=== PATIENT | male | born 1955 | race Caucasian/White ===

== ENCOUNTER 2018-07-05 17:53 | Inpatient (IN) ==
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
[2018-07-05 18:40] LABS: Baso # (Auto) 0.1 th/mm3 (0.0-0.2); Baso % (Auto) 0.9 % (0.0-2.0); Eos # (Auto) 0.1 th/mm3 (0.0-0.4); Eos % (Auto) 2.2 % (0.0-4.0); Hematocrit 42.6 % (39.0-51.0); Hemoglobin 14.6 gm/dL (13.0-17.0); Lymph # (Auto) 1.6 th/mm3 (1.0-4.8); Lymph % (Auto) 22.8 % (9.0-44.0); Mean Corpuscular HGB Conc 34.2 % (32.0-36.0); Mean Corpuscular Hemoglobin 28.9 pg (27.0-34.0); Mean Corpuscular Volume 84.4 fL (80.0-100.0); Mean Platelet Volume 6.7 fL (7.0-11.0); Mono # (Auto) 0.4 th/mm3 (0.0-0.9); Mono % (Auto) 6.2 % (0.0-8.0); Neut # (Auto) 4.6 th/mm3 (1.8-7.7); Neut % (Auto) 67.9 % (16.0-70.0); Platelet Count 197 th/mm3 (150-450); Red Blood Count 5.05 mil/mm3 (4.50-5.90); White Blood Count 6.8 th/mm3 (4.0-11.0)
[2018-07-05 18:49] LABS: Activated Partial Thrombo Time 23.6 sec (23.4-31.7); Prothrombin Time 10.4 sec (9.8-11.6)
--- NOTE | 2018-07-05 18:52 | XR ---
EXAM DATE: 07/05/2018 6:36 PM EST AGE/SEX: 62 years / Male INDICATIONS: Patient twisted right leg. CLINICAL DATA: This is the patient's initial encounter. Patient reports that signs and symptoms have been present for 1 day and indicates a pain score of 10/10. MEDICAL/SURGICAL HISTORY: None. . rt knee prosthesis COMPARISON: No prior exams available for comparison. FINDINGS: Comminuted complex oblique fracture of the distal tibia and fibula with anterior and lateral angulati on. There is approximately quarter shaft length posterior displacement of the major distal tibial fra gment and shaft length anterior displacement of the distal fibular fragment. Diffuse soft tissue maikel a. Visualized portions of the talar dome appear intact. There is a right knee arthroplasty in place. CONCLUSION: 1. Comminuted complex oblique fracture of the distal tibia and fibula, as above. Electronically signed by: Sin Wong MD Board Certified Radiologist 07/05/2018 6:51 PM EST
--- NOTE | 2018-07-05 19:05 | XR ---
EXAM DATE: 07/05/2018 7:01 PM EST AGE/SEX: 62 years / Male INDICATIONS: Patient has fracture to right distal tibia, surgery. CLINICAL DATA: This is the patient's initial encounter. Patient reports that signs and symptoms have been present for 1 day and indicates a pain score of 7/10. MEDICAL/SURGICAL HISTORY: None. . total rt knee COMPARISON: No prior exams available for comparison. FINDINGS: A single AP view of the chest demonstrates the lungs to be symmetrically aerated without evidence of mass, infiltrate or effusion. The cardiac silhouette is enlarged. Osseous structures are intact. CONCLUSION: 1. Compensated cardiomegaly. Electronically signed by: Sin Wong MD Board Certified Radiologist 07/05/2018 7:03 PM EST
[2018-07-05 19:11] LABS: Alanine Aminotransferase 40 U/L (12-78)
[2018-07-05 19:13] LABS: Alkaline Phosphatase 80 U/L (45-117); Total Protein 7.4 g/dL (6.4-8.2)
[2018-07-05 19:23] LABS: Albumin 3.6 g/dL (3.4-5.0); Anion Gap 9 meq/L (5-15); Aspartate Aminotransferase 31 U/L (15-37); Blood Urea Nitrogen 29 mg/dL (7-18); Calcium 8.6 mg/dL (8.5-10.1); Carbon Dioxide 20.4 meq/L (21.0-32.0); Chloride 108 meq/L (98-107); Glomerular Filtration Rate 54 mL/min (>89); Glucose,Random 106 mg/dL (74-106); Potassium 4.1 meq/L (3.5-5.1); Sodium 137 meq/L (136-145)
--- NOTE | 2018-07-05 19:50 | CT ---
EXAM DATE: 07/05/2018 7:41 PM EST AGE/SEX: 62 years / Male INDICATIONS: Fracture. CLINICAL DATA: This is the patient's initial encounter. Patient reports that signs and symptoms have been present for 1 day and indicates a pain score of 10/10. MEDICAL/SURGICAL HISTORY: Hypertension. . Knee replacement. RADIATION DOSE: 8.15 CTDI (mGy) COMPARISON: No prior exams available for comparison. TECHNIQUE: Multiple contiguous axial images were acquired using a multirow detector CT scanner witho ut contrast. Multiplanar reconstruction was performed in the sagittal and coronal planes. Using aut omated exposure control and adjustment of the mA and/or kV according to patient size, radiation dose was kept as low as reasonably achievable to obtain optimal diagnostic quality images. DICOM format i mage data is available electronically for review and comparison. FINDINGS: Bones: Comminuted fracture of the distal tibia with 3 major fragments with prominent lateral and pos terior angulation. Subtle nondisplaced fracture extending inferiorly along the anterior tibia to the anterior periarticular surface. Associated fracture of the distal fibula with nearly half shaft lengt h anterior displacement of the distal fragment. Similar lateral and posterior angulation. Talar dome appears intact. Calcaneal spurring. Remaining osseous structures appear intact. Joints: Ankle mortise appears intact with uniform joint space. Soft Tissues: Diffuse soft tissue edema in the distal calf. Prominent tibial artery calcifications. Other: No foreign bodies seen. CONCLUSION: 1. Distal tibial and fibular fractures, as above. Electronically signed by: Sin Wong MD Board Certified Radiologist 07/05/2018 7:49 PM EST
[2018-07-05] MEDS ORDERED: HYDROmorphone PF Inj 2 MG/ML Vial IV.PUSH ONE (20:46)
[2018-07-05] MEDS ORDERED: Acetaminophen 325 MG Tablet PO PRN (21:18)
[2018-07-05] MEDS ORDERED: Naloxone Inj 0.4 MG/ML Vial IV.PUSH PRN (21:18)
[2018-07-06] MEDS: HYDROmorphone PF Inj 1 MG/ML Ampul IV.PUSH PRN ×7 (00:52→23:15)
[2018-07-06 04:38] LABS: Baso # (Auto) 0.1 th/mm3 (0.0-0.2); Baso % (Auto) 0.8 % (0.0-2.0); Eos # (Auto) 0.2 th/mm3 (0.0-0.4); Hematocrit 43.5 % (39.0-51.0); Hemoglobin 14.6 gm/dL (13.0-17.0); Lymph # (Auto) 1.6 th/mm3 (1.0-4.8); Lymph % (Auto) 21.1 % (9.0-44.0); Mean Corpuscular HGB Conc 33.5 % (32.0-36.0); Mean Corpuscular Hemoglobin 29.1 pg (27.0-34.0); Mean Corpuscular Volume 86.9 fL (80.0-100.0); Mean Platelet Volume 6.7 fL (7.0-11.0); Mono # (Auto) 0.6 th/mm3 (0.0-0.9); Mono % (Auto) 7.2 % (0.0-8.0); Neut # (Auto) 5.4 th/mm3 (1.8-7.7); Neut % (Auto) 68.9 % (16.0-70.0); Platelet Count 234 th/mm3 (150-450); Red Blood Count 5.01 mil/mm3 (4.50-5.90); Red Cell Distribution Width 14.3 % (11.6-17.2); White Blood Count 7.8 th/mm3 (4.0-11.0)
[2018-07-06 05:07] LABS: Calcium 8.6 mg/dL (8.5-10.1); Carbon Dioxide 26.8 meq/L (21.0-32.0); Potassium 4.6 meq/L (3.5-5.1)
[2018-07-06] MEDS: Docusate Sodium 100 MG Capsule PO SCH ×3 (09:34→20:15)
[2018-07-06] MEDS: Lisinopril 20 MG Tablet PO SCH (11:25)
[2018-07-06] MEDS ORDERED: Aluminum/Magnesium/Simethacone Susp 30 ML UDC PO PRN (11:37)
[2018-07-06] MEDS ORDERED: Senna/Docusate Sodium 8.6/50 MG Tablet PO PRN (11:37)
[2018-07-06] MEDS ORDERED: LORazepam 1 MG Tablet PO PRN (11:38)
[2018-07-06] MEDS ORDERED: Haloperidol Inj 5 MG/ML Ampul IV.PUSH PRN (11:38)
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
--- NOTE | 2018-07-06 13:01 | OTSOAPIP ---
TIME SESSION COMPLETED: 1200 TREATMENT TIME: 0 MINS. CHART REVIEWED. PATIENT ADMITTED WITH COMMINUTED COMPLEX OBLIQUE FRACTURE DISTAL TIBIA AND FIBULA. AWAITING ORTHO CONSULT. OCCUPATIONAL THERAPY WILL HOLD UNTIL ORTHO CONSULT. Therapist: Rayna Graff Signature on file
--- NOTE | 2018-07-06 13:42 | ECG ---
Date Performed: 07/06/2018 Time Performed: 09:12:04 PTAGE: 62 years EKG: Sinus rhythm NORMAL ECG NO PREVIOUS TRACING DOCTOR: Edu Mireles Interpretating Date/Time 07/06/2018 13:31:00
[2018-07-06] MEDS ORDERED: Metoprolol Tartrate 25 MG Tablet PO ONE (14:42)
[2018-07-06] MEDS ORDERED: Chlorhexidine Gluconate 2% 1 Pack (2 Cloths) TOPICAL ONE (14:42)
[2018-07-06] MEDS ORDERED: Sodium Chlor 0.9% Inj 500 ML IV.SIG ONE (15:00)
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
[2018-07-06] MEDS ORDERED: HYDROmorphone PF Inj 1 MG/ML Ampul ONE (16:50)
[2018-07-06] MEDS ORDERED: Ketamine Inj 50 MG/5 ML Syringe IV.PUSH ONE (16:56)
[2018-07-06] MEDS ORDERED: ceFAZolin Inj 1 GM Vial (Addvantage) IV.SIG ONE (17:16)
[2018-07-06] MEDS ORDERED: fentaNYL Citrate Inj 100 MCG/2 ML Ampul ONE (17:16)
[2018-07-06] MEDS ORDERED: Sugammadex Inj 200 MG/2 ML Vial IV.PUSH ONE (17:34)
[2018-07-06] MEDS ORDERED: ceFAZolin 2 GM Premix Inj 2 GM/50 ML PIGGYBACK IV.SIG ONE (17:54)
[2018-07-06] MEDS ORDERED: Post-op Orders (for Pharmacy) OTHER STA (18:13)
--- NOTE | 2018-07-06 18:17 | P.OP ---
- Preoperative Diagnosis (1) Closed fracture of distal end of right fibula and tibia Date of procedure: 07/06/18 Procedure: Open reduction internal fixation right distal tibia fracture Anesthesia: GETA Surgeon: Duglas Maciel MD High School Teacher: GEORGE Cummings PA-C The surgical procedure was assisted by my physician assignment desk assistant. My P.A. presence was necessary throughout this case for the manipulation and positioning of the surgical extremity. My P.A. was assisting me throughout the duration of this procedure. The skill set of a physician assignment desk assistant was medically necessary to complete this procedure. During the surgical case the surgical services coordinator was working at the back table and the physician assignment desk assistant was directly assisting me. Operation and Findings: Implants used: [facility] Details of procedure: Edenilson was seen and evaluated preoperatively. He was found to have displaced right distal tibia and fibula fractures. Informed consent was obtained for open reduction and internal fixation of distal tibia fracture versus possible external fixation. Soft tissue was evaluated preoperatively and found to be suitable for open reduction internal fixation surgery. Patient was brought to the operating placed on operating room table. Patient was given IV sedation and general anesthesia. Timeout procedure was performed, and IV antibiotics were given prior to procedure. The operative leg was now prepped with alcohol followed by Hibiclens and draped usual sterile fashion. A 3 inch incision was now made over the medial aspect of the ankle. Saphenous vein was protected. A full thickness flap was now elevated. The distal medial tibia was now exposed. Attention was now turned towards reduction. The metaphyseal fragments were reduced first. Traction was applied and fracture fragments were manipulated. There were multiple metaphyseal fragments. These were manipulated in excellent reduction was achieved. Fracture tenaculums were used to reduce fractures. Multiple K wires were used to hold provisional fixation. Fluoroscopy confirmed excellent alignment of fractures. An [facility] medial distal tibial plate was selected. Plate was placed percutaneously along the medial aspect of the distal tibia. Plate was provisionally held to bone with K wires. 2.7 cortical screws and 3.5 cortical screws were used to compress plate to bone. Multiple screws were placed into the shaft. Multiple 2.7 locking screws were placed into the distal segment. All screws were predrilled and premeasured for appropriate lengths. Final fluoroscopy revealed well aligned fracture with well-placed hardware. The wound was now thoroughly irrigated. Subcutaneous tissues closed with 3-0 Vicryl and skin was closed with 3-0 nylon. Sterile dressings were applied with Xeroform 4 x 4's soft roll and a well-padded splint.. Needle and sponge counts were correct. Patient was transferred to recovery room in stable condition.
--- NOTE | 2018-07-06 18:37 | XR ---
EXAM DATE: 07/06/2018 6:22 PM EST AGE/SEX: 62 years / Male INDICATIONS: Right tibial plate. CLINICAL DATA: This is the patient's initial encounter. Patient reports that signs and symptoms have been present for 1 day and indicates a pain score of Nonresponsive. MEDICAL/SURGICAL HISTORY: Non-responsive. Non-responsive. COMPARISON: No prior exams available for comparison. FINDINGS: Previous plate and screw fixation of the distal tibia with near-anatomic alignment. No dislocation. CONCLUSION: Plate and screw fixation of comminuted tibial fracture. Electronically signed by: Arturo Gardiner MD Board Certified Radiologist 07/06/2018 6:35 PM EST
[2018-07-06] MEDS ORDERED: *HYDROmorphone PF Inj 1 MG/ML Ampul PERIprocedural Use ONLY ONE ×3 (18:47→19:21)
[2018-07-06] MEDS ORDERED: *Ondansetron Inj 4 MG/2 ML Vial PERIprocedural Use ONLY ONE (18:59)
[2018-07-06] MEDS ORDERED: ceFAZolin Inj 2,000 MG in Sodium Chlor 0.9% Inj 80 ML IV.SIG SCH (19:00)
[2018-07-06] MEDS ORDERED: Ketorolac Inj 30 MG/ML (IVP) Vial ONE (19:02)
[2018-07-06] MEDS: Ketorolac Inj 30 MG/ML (IVP) Vial IV.PUSH SCH (19:09)
[2018-07-06] MEDS ORDERED: Temazepam 15 MG Capsule PO PRN (21:00)
[2018-07-06] MEDS: Vancomycin Inj 1,000 MG in Sodium Chlor 0.9% Inj 250 ML IV.SIG SCH (21:05)
[2018-07-06] MEDS: Famotidine 20 MG Tablet PO SCH (21:14)
[2018-07-06] MEDS ORDERED: Vancomycin Inj 1 GM/200 ML PIGGYBACK IV.SIG SCH (22:00)
[2018-07-07] MEDS ORDERED: ceFAZolin Inj 2,000 MG in Sodium Chlor 0.9% Inj 80 ML IV.SIG SCH (02:00)
[2018-07-07] MEDS: Ketorolac Inj 30 MG/ML (IVP) Vial IV.PUSH SCH ×2 (06:02→18:22)
[2018-07-07 06:44] LABS: Baso % (Auto) 0.6 % (0.0-2.0); Eos % (Auto) 0.1 % (0.0-4.0); Hematocrit 39.2 % (39.0-51.0); Hemoglobin 13.2 gm/dL (13.0-17.0); Lymph # (Auto) 0.9 th/mm3 (1.0-4.8); Lymph % (Auto) 11.7 % (9.0-44.0); Mean Corpuscular HGB Conc 33.5 % (32.0-36.0); Mean Corpuscular Hemoglobin 28.9 pg (27.0-34.0); Mean Corpuscular Volume 86.2 fL (80.0-100.0); Mono # (Auto) 0.3 th/mm3 (0.0-0.9); Mono % (Auto) 4.3 % (0.0-8.0); Neut # (Auto) 6.1 th/mm3 (1.8-7.7); Neut % (Auto) 83.3 % (16.0-70.0); Platelet Count 216 th/mm3 (150-450); Prothrombin Time 10.4 sec (9.8-11.6); Red Blood Count 4.55 mil/mm3 (4.50-5.90); Red Cell Distribution Width 14.1 % (11.6-17.2); White Blood Count 7.3 th/mm3 (4.0-11.0)
[2018-07-07 07:10] LABS: Alanine Aminotransferase 38 U/L (12-78); Albumin 3.3 g/dL (3.4-5.0); Anion Gap 7 meq/L (5-15); Aspartate Aminotransferase 32 U/L (15-37); Blood Urea Nitrogen 29 mg/dL (7-18); Carbon Dioxide 23.3 meq/L (21.0-32.0); Chloride 106 meq/L (98-107); Glomerular Filtration Rate 54 mL/min (>89); Glucose,Random 135 mg/dL (74-106); Magnesium 2.1 mg/dL (1.5-2.5); Phosphorus 3.6 mg/dL (2.5-4.9); Potassium 4.6 meq/L (3.5-5.1); Sodium 136 meq/L (136-145)
[2018-07-07 07:18] LABS: Alkaline Phosphatase 69 U/L (45-117); Free T4 (Free Thyroxine) 1.22 ng/dL (0.76-1.46); Total Protein 7.2 g/dL (6.4-8.2)
[2018-07-07] MEDS: Folic Acid 1 MG Tablet PO SCH (08:50)
[2018-07-07] MEDS: Lisinopril 20 MG Tablet PO SCH (08:50)
[2018-07-07] MEDS: Calcium/Vitamin D 250/125 MG Tablet PO SCH ×3 (08:51→17:30)
[2018-07-07] MEDS: Docusate Sodium 100 MG Capsule PO SCH ×3 (08:51→17:30)
[2018-07-07] MEDS: Multivitamin/Minerals Therapeutic Tablet PO SCH (08:51)
[2018-07-07] MEDS ORDERED: Enoxaparin Inj 40 MG/0.4 ML Syringe SQ SCH (09:00)
--- NOTE | 2018-07-07 09:22 | P.PNOP ---
Subjective Interval history: Pt admits pain well controlled and feels 'much better today'. He expresses interest in going to rehab facility as he has no help at home and does not live here permanently. Physical Exam Vital signs: Vital Signs 07/06/18 12:00 07/06/18 18:40 07/06/18 18:45 Temperature 97.5 F L 98.3 F Pulse Rate 80 82 78 Respiratory Rate 16 20 20 Blood Pressure 131/69 151/79 H 127/58 L Pulse Oximetry 99 95 98 07/06/18 19:00 07/06/18 19:15 07/06/18 19:32 Temperature 98.3 F 97.8 F Pulse Rate 75 74 75 Respiratory Rate 20 20 19 Blood Pressure 121/66 117/72 132/58 L Pulse Oximetry 94 L 97 98 07/06/18 19:51 07/06/18 23:24 07/07/18 04:06 Temperature 97.3 F L 98.0 F Pulse Rate 87 94 H Respiratory Rate 20 18 18 Blood Pressure 130/66 117/75 Pulse Oximetry 95 94 L Intake & Output 07/06/18 07/07/18 07/07/18 18:59 06:59 18:59 Intake Total 850 / 850 350 / 350 Output Total 50 / 50 800 / 800 Balance 800 / 800 -450 / -450 Intake: IV 50 / 50 350 / 350 Vancomycin Inj 1,000 MG In NS 250 / 250 Inj 250 ML @ 250 mls/hr IV.SIG Q12H [facility] Rx#:[id number] Ancef 2 GM Premix Inj 2 gm In 50 / 50 50 ml @ 100 mls/hr IV.SIG ONCE ONE Rx#:[id number] Ancef Inj 2,000 MG In NS Inj 80 100 / 100 ML @ 200 mls/hr IV.SIG Q8H [facility] Rx#:[id number] Anesthesia Amount 800 / 800 Output: Urine 800 / 800 Estimated Blood Loss 50 / 50 Other: Date of Last Bowel Movement 07/05/18 07/05/18 Narrative: RLE: in splint, dry and intact, able to freely move distal digits, good cap refill. well healed anterior incision over knee. Results - Labs CBC & Chem 7: 07/07/18 05:40 07/07/18 05:40 Laboratory Results - last 24 hr 07/06/18 07/06/18 07/07/18 12:37 23:55 05:40 WBC 7.3 RBC 4.55 Hgb 13.2 Hct 39.2 MCV 86.2 MCH 28.9 MCHC 33.5 RDW 14.1 Plt Count 216 MPV 7.0 Neut % (Auto) 83.3 H Lymph % (Auto) 11.7 [place] % (Auto) 4.3 Eos % (Auto) 0.1 Baso % (Auto) 0.6 Neut # (Auto) 6.1 Lymph # (Auto) 0.9 L [place] # (Auto) 0.3 Eos # (Auto) 0.0 Baso # (Auto) 0.0 WBC Differential . Differential Comment Auto diff final PT INR Sodium Potassium Chloride Carbon Dioxide Anion Gap BUN Creatinine Estimated GFR POC Glucose 108 128 H Random Glucose Calcium Phosphorus Magnesium Total Bilirubin AST ALT Alkaline Phosphatase Total Protein Albumin TSH Free T4 07/07/18 07/07/18 07/07/18 05:40 05:40 08:15 WBC RBC Hgb Hct MCV MCH MCHC RDW Plt Count MPV Neut % (Auto) Lymph % (Auto) [place] % (Auto) Eos % (Auto) Baso % (Auto) Neut # (Auto) Lymph # (Auto) [place] # (Auto) Eos # (Auto) Baso # (Auto) WBC Differential Differential Comment PT 10.4 INR 1.0 Sodium 136 Potassium 4.6 Chloride 106 Carbon Dioxide 23.3 Anion Gap 7 BUN 29 H Creatinine 1.34 H Estimated GFR 54 L POC Glucose 104 Random Glucose 135 H Calcium 8.0 L Phosphorus 3.6 Magnesium 2.1 Total Bilirubin 0.6 AST 32 ALT 38 Alkaline Phosphatase 69 Total Protein 7.2 Albumin 3.3 L TSH 1.160 Free T4 1.22 - Imaging Impressions Ankle X-Ray 07/06/18 00:00 CONCLUSION: Plate and screw fixation of comminuted tibial fracture. Assessment and Plan - Assessment and Plan POD #1 ORIF right distal tibia fracture, Jarad Calcium and vitamin D supplementation Physical therapy consult--nonweightbearing right leg Leave splint in place. Follow-up with Dr. Abraham in 2 weeks SCDs, Tae Walsh CM to arrange rehab vs [facility] Clear for d/c from an orthopedic standpoint
[2018-07-07] MEDS: Famotidine 20 MG Tablet PO SCH ×2 (10:30→21:39)
[2018-07-07] MEDS: Vancomycin Inj 1,000 MG in Sodium Chlor 0.9% Inj 250 ML IV.SIG SCH (10:32)
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
[2018-07-07 12:51] LABS: Hemoglobin A1c 5.4 % (4.3-6.0)
[2018-07-07] MEDS: Sod Chloride 0.9% Inj 1,000 ML IV.CONT SCH (13:02)
[2018-07-07] MEDS: HYDROmorphone PF Inj 1 MG/ML Ampul IV.PUSH PRN (13:56)
[2018-07-07] MEDS: ceFAZolin 2 GM Premix Inj 2 GM/50 ML PIGGYBACK IV.SIG SCH (17:31)
[2018-07-07] MEDS: Enoxaparin Inj 40 MG/0.4 ML Syringe SQ SCH (18:22)
[2018-07-08] MEDS: ceFAZolin 2 GM Premix Inj 2 GM/50 ML PIGGYBACK IV.SIG SCH ×3 (01:41→17:04)
[2018-07-08] MEDS: Sod Chloride 0.9% Inj 1,000 ML IV.CONT SCH ×3 (01:42→23:23)
[2018-07-08 06:43] LABS: Albumin 3.1 g/dL (3.4-5.0); Anion Gap 8 meq/L (5-15); Aspartate Aminotransferase 31 U/L (15-37); Blood Urea Nitrogen 23 mg/dL (7-18); Calcium 8.3 mg/dL (8.5-10.1); Carbon Dioxide 22.5 meq/L (21.0-32.0); Chloride 108 meq/L (98-107); Glomerular Filtration Rate 72 mL/min (>89); Glucose,Random 81 mg/dL (74-106); Sodium 138 meq/L (136-145)
[2018-07-08 06:44] LABS: Alanine Aminotransferase 30 U/L (12-78); Phosphorus 3.5 mg/dL (2.5-4.9)
[2018-07-08 06:46] LABS: Alkaline Phosphatase 65 U/L (45-117); Total Protein 6.8 g/dL (6.4-8.2)
[2018-07-08] MEDS: Lisinopril 20 MG Tablet PO SCH (08:47)
[2018-07-08] MEDS: Calcium/Vitamin D 250/125 MG Tablet PO SCH ×3 (08:47→17:05)
[2018-07-08] MEDS: Famotidine 20 MG Tablet PO SCH ×2 (08:48→20:51)
[2018-07-08] MEDS: Enoxaparin Inj 40 MG/0.4 ML Syringe SQ SCH (08:48)
[2018-07-08] MEDS: Multivitamin/Minerals Therapeutic Tablet PO SCH (08:48)
[2018-07-08] MEDS: Docusate Sodium 100 MG Capsule PO SCH ×3 (08:48→17:04)
[2018-07-08] MEDS: Folic Acid 1 MG Tablet PO SCH (08:48)
--- NOTE | 2018-07-08 13:48 | P.PNIM ---
Subjective Interval history: In bed appears to not acute distress at this time. Pain is fairly controlled by medications. Says he did not have a bowel movement. No fever or chills. Eating fairly well. Physical Exam Vital signs: Last Vital Signs Temp 98.5 F 07/08/18 12:00 Pulse 80 07/08/18 12:00 Resp 18 07/08/18 12:00 BP 116/55 L 07/08/18 12:00 Pulse Ox 95 07/08/18 12:00 Intake & Output 07/06/18 07/07/18 07/08/18 07/09/18 06:59 06:59 06:59 06:59 Intake Total 0 / 0 1200 / 1200 1600 / 1600 50 / 50 Output Total 850 / 850 1875 / 1875 Balance 0 / 0 350 / 350 -275 / -275 50 / 50 Weight 165.5 kg Narrative: GENERAL: Awake alert and oriented x3 talkative and cooperative SKIN: Warm and dry. Tenderness and swelling to the right lower extremity foot and ankle CARDIOVASCULAR: Regular rate and rhythm. S1-S2 no S3 or S4 RESPIRATORY: No accessory muscle use. Clear to auscultation. Breath sounds equal bilaterally. GASTROINTESTINAL: Abdomen soft, non-tender, nondistended. Hepatic and splenic margins not palpable. MUSCULOSKELETAL: Extremities without clubbing, cyanosis, or edema. No obvious deformities. Right lower extremity is currently in splint can move toes of the right lower extremity Not able to weight-bear on right lower extremity NEUROLOGICAL: Awake and alert. No obvious cranial nerve deficits. Motor grossly within normal limits. Normal speech. PSYCHIATRIC: Appropriate mood and affect; insight and judgment normal. Results Labs CBC & Chem 7: 07/07/18 05:40 07/08/18 05:11 Procedures Procedures: - Preoperative Diagnosis (1) Closed fracture of distal end of right fibula and tibia Date of procedure: 07/06/18 Procedure: Open reduction internal fixation right distal tibia fracture Anesthesia: GETA Surgeon: Duglas Maciel MD Aerospace Quality Engineer: GEORGE Cummings PA-C The surgical procedure was assisted by my physician dietitian assistant. My P.A. presence was necessary throughout this case for the manipulation and positioning of the surgical extremity. My P.A. was assisting me throughout the duration of this procedure. The skill set of a physician dietitian assistant was medically necessary to complete this procedure. During the surgical case the salesperson surgical appliances was working at the back table and the physician dietitian assistant was directly assisting me. Operation and Findings: Implants used: [facility] Details of procedure: Edenilson was seen and evaluated preoperatively. He was found to have displaced right distal tibia and fibula fractures. Informed consent was obtained for open reduction and internal fixation of distal tibia fracture versus possible external fixation. Soft tissue was evaluated preoperatively and found to be suitable for open reduction internal fixation surgery. Patient was brought to the operating placed on operating room table. Patient was given IV sedation and general anesthesia. Timeout procedure was performed, and IV antibiotics were given prior to procedure. The operative leg was now prepped with alcohol followed by Hibiclens and draped usual sterile fashion. A 3 inch incision was now made over the medial aspect of the ankle. Saphenous vein was protected. A full thickness flap was now elevated. The distal medial tibia was now exposed. Attention was now turned towards reduction. The metaphyseal fragments were reduced first. Traction was applied and fracture fragments were manipulated. There were multiple metaphyseal fragments. These were manipulated in excellent reduction was achieved. Fracture tenaculums were used to reduce fractures. Multiple K wires were used to hold provisional fixation. Fluoroscopy confirmed excellent alignment of fractures. An [facility] medial distal tibial plate was selected. Plate was placed percutaneously along the medial aspect of the distal tibia. Plate was provisionally held to bone with K wires. 2.7 cortical screws and 3.5 cortical screws were used to compress plate to bone. Multiple screws were placed into the shaft. Multiple 2.7 locking screws were placed into the distal segment. All screws were predrilled and premeasured for appropriate lengths. Final fluoroscopy revealed well aligned fracture with well-placed hardware. The wound was now thoroughly irrigated. Subcutaneous tissues closed with 3-0 Vicryl and skin was closed with 3-0 nylon. Sterile dressings were applied with Xeroform 4 x 4's soft roll and a well-padded splint.. Needle and sponge counts were correct. Patient was transferred to recovery room in stable condition. Documented By: Duglas Maciel MD Assessment and Plan Plan Closed fracture of distal end of right fibula and tibia -Pain control -Orthopedics has been consult -Placed on orthopedic floor -Surgery per orthopedics (1) Closed fracture of distal end of right fibula and tibia Date of procedure: 07/06/18 Procedure: Open reduction internal fixation right distal tibia fracture -CONTINUE PT AND OT Hypertension resume home medications Obesity weight loss recommended Chronic alcohol use CINY protocol as needed- Multivitamin, thiamine, folic acid Medications to prevent constipation Renal insufficiency/dehydration-possibly secondary to lisinopril hydrochlorothiazide versus no fluids - IV fluids Constipation: bowel regimen. DVT prophylaxis per orthopedics GI prophylaxis with Pepcid or the equivalent Code Status: FULL CODE Discussed Condition With: RN AND PT Discharge Planning: ONCE CLEARED BY ORTHO AND CM HAS SAFE PLACE FOR DC SET UP Plan for rehab Progress Note: Quality VTE Deep Vein Thrombosis/Pulmonary Embolism Present on Admission: No
--- NOTE | 2018-07-08 16:18 | P.PNOP ---
Subjective Interval history: Patient states his pain is tolerable. He is still interested in possible placement in rehab. Physical Exam Vital signs: Vital Signs 07/07/18 20:32 07/07/18 23:32 07/08/18 03:40 Temperature 98.4 F 97.6 F 98.2 F Pulse Rate 83 85 79 Respiratory Rate 18 18 18 Blood Pressure 131/85 127/63 141/66 H Pulse Oximetry 97 97 97 07/08/18 08:00 07/08/18 08:47 07/08/18 10:27 Temperature 98.1 F Pulse Rate 78 Respiratory Rate 18 20 20 Blood Pressure 141/91 H Pulse Oximetry 97 07/08/18 12:00 Temperature 98.5 F Pulse Rate 80 Respiratory Rate 18 Blood Pressure 116/55 L Pulse Oximetry 95 Intake & Output 07/07/18 07/08/18 07/08/18 18:59 06:59 18:59 Intake Total 500 / 500 1100 / 1100 1050 / 1050 Output Total 400 / 400 1475 / 1475 Balance 100 / 100 -375 / -375 1050 / 1050 Intake: IV 0 / 0 1100 / 1100 1050 / 1050 NS Inj 1,000 ML @ 100 mls/hr IV 1000 / 1000 1000 / 1000 .CONT .Q10H [facility] Rx#:[id number] Ancef 2 GM Premix Inj 2 gm In 0 / 0 100 / 100 50 / 50 50 ml @ 100 mls/hr IV.SIG Q8H [facility] Rx#:[id number] Oral 500 / 500 Output: Urine 400 / 400 1475 / 1475 Other: Date of Last Bowel Movement 07/05/18 07/05/18 Narrative: MUSCULOSKELETAL: Extremities without clubbing, cyanosis, or edema. No obvious deformities. Right lower extremity is currently in splint can move toes of the right lower extremity Not able to weight-bear on right lower extremity. NVI Results - Labs CBC & Chem 7: 07/07/18 05:40 07/08/18 05:11 Laboratory Results - last 24 hr 07/08/18 05:11 Sodium 138 Potassium 4.0 Chloride 108 H Carbon Dioxide 22.5 Anion Gap 8 BUN 23 H Creatinine 1.05 Estimated GFR 72 L Random Glucose 81 Calcium 8.3 L Phosphorus 3.5 Magnesium 2.0 Total Bilirubin 0.5 AST 31 ALT 30 Alkaline Phosphatase 65 Total Protein 6.8 Albumin 3.1 L - Procedures - Preoperative Diagnosis (1) Closed fracture of distal end of right fibula and tibia Date of procedure: 07/06/18 Procedure: Open reduction internal fixation right distal tibia fracture Anesthesia: GETA Surgeon: Duglas Maciel MD [employer] Dies: GEORGE Cummings PA-C The surgical procedure was assisted by my physician assistant bookkeeper. My P.A. presence was necessary throughout this case for the manipulation and positioning of the surgical extremity. My P.A. was assisting me throughout the duration of this procedure. The skill set of a physician assistant bookkeeper was medically necessary to complete this procedure. During the surgical case the surgical instrument mechanic was working at the back table and the physician assistant bookkeeper was directly assisting me. Operation and Findings: Implants used: [facility] Details of procedure: Edenilson was seen and evaluated preoperatively. He was found to have displaced right distal tibia and fibula fractures. Informed consent was obtained for open reduction and internal fixation of distal tibia fracture versus possible external fixation. Soft tissue was evaluated preoperatively and found to be suitable for open reduction internal fixation surgery. Patient was brought to the operating placed on operating room table. Patient was given IV sedation and general anesthesia. Timeout procedure was performed, and IV antibiotics were given prior to procedure. The operative leg was now prepped with alcohol followed by Hibiclens and draped usual sterile fashion. A 3 inch incision was now made over the medial aspect of the ankle. Saphenous vein was protected. A full thickness flap was now elevated. The distal medial tibia was now exposed. Attention was now turned towards reduction. The metaphyseal fragments were reduced first. Traction was applied and fracture fragments were manipulated. There were multiple metaphyseal fragments. These were manipulated in excellent reduction was achieved. Fracture tenaculums were used to reduce fractures. Multiple K wires were used to hold provisional fixation. Fluoroscopy confirmed excellent alignment of fractures. An [facility] medial distal tibial plate was selected. Plate was placed percutaneously along the medial aspect of the distal tibia. Plate was provisionally held to bone with K wires. 2.7 cortical screws and 3.5 cortical screws were used to compress plate to bone. Multiple screws were placed into the shaft. Multiple 2.7 locking screws were placed into the distal segment. All screws were predrilled and premeasured for appropriate lengths. Final fluoroscopy revealed well aligned fracture with well-placed hardware. The wound was now thoroughly irrigated. Subcutaneous tissues closed with 3-0 Vicryl and skin was closed with 3-0 nylon. Sterile dressings were applied with Xeroform 4 x 4's soft roll and a well-padded splint.. Needle and sponge counts were correct. Patient was transferred to recovery room in stable condition. Documented By: Duglas Maciel MD Assessment and Plan - Assessment and Plan POD #2 ORIF right distal tibia fracture, Jarad Calcium and vitamin D supplementation Physical therapy consult--nonweightbearing right leg Leave splint in place. Follow-up with Dr. Maciel in 2 weeks SCDs, Tae Walsh CM to arrange rehab vs [facility] for d/c from an orthopedic standpoint
--- NOTE | 2018-07-09 07:16 | P.PNOP ---
Subjective Interval history: POD 3 s/p ORIF right distal tibia doing well. pain improving. out of bed with assistance. Physical Exam Vital signs: Vital Signs 07/08/18 08:00 07/08/18 08:47 07/08/18 10:27 Temperature 98.1 F Pulse Rate 78 Respiratory Rate 18 20 20 Blood Pressure 141/91 H Pulse Oximetry 97 07/08/18 12:00 07/08/18 16:00 07/08/18 19:50 Temperature 98.5 F 98.2 F 98 F Pulse Rate 80 84 90 Respiratory Rate 18 18 18 Blood Pressure 116/55 L 140/71 155/76 H Pulse Oximetry 95 99 97 07/08/18 20:51 07/09/18 00:10 07/09/18 03:50 Temperature 98.1 F 97.4 F L Pulse Rate 76 80 Respiratory Rate 6 L 18 18 Blood Pressure 134/82 159/74 H Pulse Oximetry 96 98 Intake & Output 07/08/18 07/09/18 07/09/18 18:59 06:59 18:59 Intake Total 1100 / 1100 1240 / 1240 Output Total 1125 / 1125 Balance 1100 / 1100 115 / 115 Weight 165.5 kg Intake: IV 1100 / 1100 1000 / 1000 NS Inj 1,000 ML @ 100 mls/hr IV 1000 / 1000 1000 / 1000 .CONT .Q10H SYD Rx#:[id number] Ancef 2 GM Premix Inj 2 gm In 100 / 100 50 ml @ 100 mls/hr IV.SIG Q8H SYD Rx#:[id number] Oral 240 / 240 Output: Urine 1125 / 1125 Other: Date of Last Bowel Movement 07/05/18 # Bowel Movements 0 Narrative: RLE: +short leg splint. intact. NVI Results - Labs CBC & Chem 7: 07/07/18 05:40 07/08/18 05:11 - Procedures - Preoperative Diagnosis (1) Closed fracture of distal end of right fibula and tibia Date of procedure: 07/06/18 Procedure: Open reduction internal fixation right distal tibia fracture Anesthesia: GETA Surgeon: Duglas Maciel MD Adoption Worker: GEORGE Cummings PA-C The surgical procedure was assisted by my physician assistant housekeeping manager. My P.A. presence was necessary throughout this case for the manipulation and positioning of the surgical extremity. My P.A. was assisting me throughout the duration of this procedure. The skill set of a physician assistant housekeeping manager was medically necessary to complete this procedure. During the surgical case the surgical training specialist was working at the back table and the physician assistant housekeeping manager was directly assisting me. Operation and Findings: Implants used: [facility] Details of procedure: Edenilson was seen and evaluated preoperatively. He was found to have displaced right distal tibia and fibula fractures. Informed consent was obtained for open reduction and internal fixation of distal tibia fracture versus possible external fixation. Soft tissue was evaluated preoperatively and found to be suitable for open reduction internal fixation surgery. Patient was brought to the operating placed on operating room table. Patient was given IV sedation and general anesthesia. Timeout procedure was performed, and IV antibiotics were given prior to procedure. The operative leg was now prepped with alcohol followed by Hibiclens and draped usual sterile fashion. A 3 inch incision was now made over the medial aspect of the ankle. Saphenous vein was protected. A full thickness flap was now elevated. The distal medial tibia was now exposed. Attention was now turned towards reduction. The metaphyseal fragments were reduced first. Traction was applied and fracture fragments were manipulated. There were multiple metaphyseal fragments. These were manipulated in excellent reduction was achieved. Fracture tenaculums were used to reduce fractures. Multiple K wires were used to hold provisional fixation. Fluoroscopy confirmed excellent alignment of fractures. An [facility] medial distal tibial plate was selected. Plate was placed percutaneously along the medial aspect of the distal tibia. Plate was provisionally held to bone with K wires. 2.7 cortical screws and 3.5 cortical screws were used to compress plate to bone. Multiple screws were placed into the shaft. Multiple 2.7 locking screws were placed into the distal segment. All screws were predrilled and premeasured for appropriate lengths. Final fluoroscopy revealed well aligned fracture with well-placed hardware. The wound was now thoroughly irrigated. Subcutaneous tissues closed with 3-0 Vicryl and skin was closed with 3-0 nylon. Sterile dressings were applied with Xeroform 4 x 4's soft roll and a well-padded splint.. Needle and sponge counts were correct. Patient was transferred to recovery room in stable condition. Documented By: Duglas Maciel MD Assessment and Plan - Assessment and Plan POD #3 ORIF right distal tibia fracture, Jarad Calcium and vitamin D supplementation Physical therapy consult--nonweightbearing right leg Leave splint in place. Follow-up with Dr. Maicel in 2 weeks SCDs, Tae Walsh CM to arrange rehab Clear for d/c from an orthopedic standpoint to rehab [facility] Prescription Drug Monitoring Database has been queried and verified prior to prescribing the controlled substance. Acute pain exception. This patient has normal, predicted, physiological, and time limited response to an adverse mechanical stimulus associated with surgery, trauma, or acute illness as described in my notes. There is a lack of alternative treatment options other than to include the prescribed narcotic treatment for this condition.
[2018-07-09] MEDS: Multivitamin/Minerals Therapeutic Tablet PO SCH (09:10)
[2018-07-09] MEDS: Famotidine 20 MG Tablet PO SCH ×2 (09:10→20:55)
[2018-07-09] MEDS: Calcium/Vitamin D 250/125 MG Tablet PO SCH ×3 (09:10→17:52)
[2018-07-09] MEDS: Enoxaparin Inj 40 MG/0.4 ML Syringe SQ SCH (09:11)
[2018-07-09] MEDS: Folic Acid 1 MG Tablet PO SCH (09:11)
[2018-07-09] MEDS: Docusate Sodium 100 MG Capsule PO SCH ×3 (09:11→18:17)
[2018-07-09] MEDS: Lisinopril 20 MG Tablet PO SCH (09:11)
--- NOTE | 2018-07-09 15:44 | P.PNIM ---
Subjective Interval history: The patient was up in the chair today. Still did not have a bowel movement. Was able to ambulate in the room with physical therapy and he has more pain in his right leg. No fever or chills. No nausea or vomiting. No chest pain or shortness of breath. Physical Exam Vital signs: Last Vital Signs Temp 97.8 F 07/09/18 12:00 Pulse 84 07/09/18 12:00 Resp 18 07/09/18 12:00 BP 148/70 H 07/09/18 12:00 Pulse Ox 95 07/09/18 12:00 Intake & Output 07/07/18 07/08/18 07/09/18 07/10/18 06:59 06:59 06:59 06:59 Intake Total 1200 / 1200 1600 / 1600 2340 / 2340 1000 / 1000 Output Total 850 / 850 1875 / 1875 1125 / 1125 Balance 350 / 350 -275 / -275 1215 / 1215 1000 / 1000 Weight 165.5 kg Narrative: GENERAL: Awake alert and oriented x3 , pleasant obese male, appears in nad. SKIN: Warm and dry. Tenderness and swelling to the right lower extremity foot and ankle CARDIOVASCULAR: Regular rate and rhythm. S1-S2 no S3 or S4 RESPIRATORY: No accessory muscle use. Clear to auscultation. Breath sounds equal bilaterally. GASTROINTESTINAL: Abdomen soft, obese, non-tender, nondistended. Hepatic and splenic margins not palpable. MUSCULOSKELETAL: Extremities without clubbing, cyanosis, or edema. No obvious deformities. Right lower extremity is currently in splint can move toes of the right lower extremity Not able to weight-bear on right lower extremity NEUROLOGICAL: Awake and alert. No obvious cranial nerve deficits. Motor grossly within normal limits. Normal speech. PSYCHIATRIC: Appropriate mood and affect; insight and judgment normal. Results Labs CBC & Chem 7: 07/07/18 05:40 07/08/18 05:11 Procedures Procedures: - Preoperative Diagnosis (1) Closed fracture of distal end of right fibula and tibia Date of procedure: 07/06/18 Procedure: Open reduction internal fixation right distal tibia fracture Anesthesia: GETA Surgeon: Duglas Maciel MD Glass Loading Equipment Tender: GEORGE Cummings PA-C The surgical procedure was assisted by my physician residential assistant. My P.A. presence was necessary throughout this case for the manipulation and positioning of the surgical extremity. My P.A. was assisting me throughout the duration of this procedure. The skill set of a physician residential assistant was medically necessary to complete this procedure. During the surgical case the surgical corsetier was working at the back table and the physician residential assistant was directly assisting me. Operation and Findings: Implants used: [facility] Details of procedure: Edenilson was seen and evaluated preoperatively. He was found to have displaced right distal tibia and fibula fractures. Informed consent was obtained for open reduction and internal fixation of distal tibia fracture versus possible external fixation. Soft tissue was evaluated preoperatively and found to be suitable for open reduction internal fixation surgery. Patient was brought to the operating placed on operating room table. Patient was given IV sedation and general anesthesia. Timeout procedure was performed, and IV antibiotics were given prior to procedure. The operative leg was now prepped with alcohol followed by Hibiclens and draped usual sterile fashion. A 3 inch incision was now made over the medial aspect of the ankle. Saphenous vein was protected. A full thickness flap was now elevated. The distal medial tibia was now exposed. Attention was now turned towards reduction. The metaphyseal fragments were reduced first. Traction was applied and fracture fragments were manipulated. There were multiple metaphyseal fragments. These were manipulated in excellent reduction was achieved. Fracture tenaculums were used to reduce fractures. Multiple K wires were used to hold provisional fixation. Fluoroscopy confirmed excellent alignment of fractures. An [facility] medial distal tibial plate was selected. Plate was placed percutaneously along the medial aspect of the distal tibia. Plate was provisionally held to bone with K wires. 2.7 cortical screws and 3.5 cortical screws were used to compress plate to bone. Multiple screws were placed into the shaft. Multiple 2.7 locking screws were placed into the distal segment. All screws were predrilled and premeasured for appropriate lengths. Final fluoroscopy revealed well aligned fracture with well-placed hardware. The wound was now thoroughly irrigated. Subcutaneous tissues closed with 3-0 Vicryl and skin was closed with 3-0 nylon. Sterile dressings were applied with Xeroform 4 x 4's soft roll and a well-padded splint.. Needle and sponge counts were correct. Patient was transferred to recovery room in stable condition. Documented By: Duglas Maciel MD Assessment and Plan Plan Closed fracture of distal end of right fibula and tibia -Pain control -Orthopedics has been consult -Placed on orthopedic floor -Surgery per orthopedics (1) Closed fracture of distal end of right fibula and tibia Date of procedure: 07/06/18 Procedure: Open reduction internal fixation right distal tibia fracture -CONTINUE PT AND OT Hypertension resume home medications Obesity weight loss recommended Chronic alcohol use [facility] protocol as needed- Multivitamin, thiamine, folic acid Medications to prevent constipation Renal insufficiency/dehydration-possibly secondary to lisinopril hydrochlorothiazide versus no fluids - IV fluids Constipation: bowel regimen. DVT prophylaxis per orthopedics GI prophylaxis with Pepcid or the equivalent Code Status: FULL CODE Discussed Condition With: RN AND PT Discharge Planning: ONCE CLEARED BY ORTHO AND CM HAS SAFE PLACE FOR DC SET UP Plan for rehab Progress Note: Quality VTE Deep Vein Thrombosis/Pulmonary Embolism Present on Admission: No
--- NOTE | 2018-07-10 06:51 | P.PNOP ---
Subjective Interval history: POD 4 s/p ORIF right distal tibia doing well. improving. states that is doing well using walker on own. reports that is now leaning towards possibly going home instead of rehab Physical Exam Vital signs: Vital Signs 07/09/18 08:00 07/09/18 12:00 07/09/18 16:00 Temperature 98.2 F 97.8 F 98.1 F Pulse Rate 81 84 84 Respiratory Rate 18 18 18 Blood Pressure 133/66 148/70 H 126/61 Pulse Oximetry 95 95 96 07/09/18 20:31 07/09/18 21:36 07/10/18 00:41 Temperature 97.8 F 97.7 F Pulse Rate 84 76 Respiratory Rate 18 18 18 Blood Pressure 132/77 123/64 Pulse Oximetry 96 96 Intake & Output 07/09/18 07/09/18 07/10/18 06:59 18:59 06:59 Intake Total 1240 / 1240 1000 / 1000 740 / 740 Output Total 1125 / 1125 675 / 675 Balance 115 / 115 1000 / 1000 65 / 65 Weight 165.5 kg 166.1 kg Intake: IV 1000 / 1000 1000 / 1000 NS Inj 1,000 ML @ 100 mls/hr IV 1000 / 1000 1000 / 1000 .CONT .Q10H SYD Rx#:[id number] Oral 240 / 240 740 / 740 Output: Urine 1125 / 1125 675 / 675 Other: # Voids 4 Date of Last Bowel Movement 07/05/18 07/09/18 07/09/18 # Bowel Movements 0 1 0 Narrative: RLE: dressings clean and dry. intact. NVI. +splint Results - Labs CBC & Chem 7: 07/07/18 05:40 07/08/18 05:11 Laboratory Results - last 24 hr 07/09/18 07:04 POC Glucose 85 - Procedures - Preoperative Diagnosis (1) Closed fracture of distal end of right fibula and tibia Date of procedure: 07/06/18 Procedure: Open reduction internal fixation right distal tibia fracture Anesthesia: GETA Surgeon: Duglas Maciel MD Dry Cleaning Machine Operator Helper: GEORGE Cummings PA-C The surgical procedure was assisted by my physician culinary assistant. My P.A. presence was necessary throughout this case for the manipulation and positioning of the surgical extremity. My P.A. was assisting me throughout the duration of this procedure. The skill set of a physician culinary assistant was medically necessary to complete this procedure. During the surgical case the surgical dental assistant was working at the back table and the physician culinary assistant was directly assisting me. Operation and Findings: Implants used: [facility] Details of procedure: Edenilson was seen and evaluated preoperatively. He was found to have displaced right distal tibia and fibula fractures. Informed consent was obtained for open reduction and internal fixation of distal tibia fracture versus possible external fixation. Soft tissue was evaluated preoperatively and found to be suitable for open reduction internal fixation surgery. Patient was brought to the operating placed on operating room table. Patient was given IV sedation and general anesthesia. Timeout procedure was performed, and IV antibiotics were given prior to procedure. The operative leg was now prepped with alcohol followed by Hibiclens and draped usual sterile fashion. A 3 inch incision was now made over the medial aspect of the ankle. Saphenous vein was protected. A full thickness flap was now elevated. The distal medial tibia was now exposed. Attention was now turned towards reduction. The metaphyseal fragments were reduced first. Traction was applied and fracture fragments were manipulated. There were multiple metaphyseal fragments. These were manipulated in excellent reduction was achieved. Fracture tenaculums were used to reduce fractures. Multiple K wires were used to hold provisional fixation. Fluoroscopy confirmed excellent alignment of fractures. An [facility] medial distal tibial plate was selected. Plate was placed percutaneously along the medial aspect of the distal tibia. Plate was provisionally held to bone with K wires. 2.7 cortical screws and 3.5 cortical screws were used to compress plate to bone. Multiple screws were placed into the shaft. Multiple 2.7 locking screws were placed into the distal segment. All screws were predrilled and premeasured for appropriate lengths. Final fluoroscopy revealed well aligned fracture with well-placed hardware. The wound was now thoroughly irrigated. Subcutaneous tissues closed with 3-0 Vicryl and skin was closed with 3-0 nylon. Sterile dressings were applied with Xeroform 4 x 4's soft roll and a well-padded splint.. Needle and sponge counts were correct. Patient was transferred to recovery room in stable condition. Documented By: Duglas Maciel MD Assessment and Plan - Assessment and Plan POD #4 ORIF right distal tibia fracture, Jarad Calcium and vitamin D supplementation Physical therapy consult--nonweightbearing right leg Leave splint in place. Follow-up with Dr. Maciel in 2 weeks SCDs, Tae Walsh CM to arrange rehab Clear for d/c from an orthopedic standpoint. ok with home with [facility] if patient prefers [facility] Prescription Drug Monitoring Database has been queried and verified prior to prescribing the controlled substance. Acute pain exception. This patient has normal, predicted, physiological, and time limited response to an adverse mechanical stimulus associated with surgery, trauma, or acute illness as described in my notes. There is a lack of alternative treatment options other than to include the prescribed narcotic treatment for this condition.
[2018-07-10] MEDS: Famotidine 20 MG Tablet PO SCH ×2 (08:43→20:22)
[2018-07-10] MEDS: Multivitamin/Minerals Therapeutic Tablet PO SCH (08:43)
[2018-07-10] MEDS: Enoxaparin Inj 40 MG/0.4 ML Syringe SQ SCH (08:43)
[2018-07-10] MEDS: Docusate Sodium 100 MG Capsule PO SCH ×3 (08:43→17:04)
[2018-07-10] MEDS: Lisinopril 20 MG Tablet PO SCH (08:43)
[2018-07-10] MEDS: Calcium/Vitamin D 250/125 MG Tablet PO SCH ×3 (08:43→17:03)
[2018-07-10] MEDS: Folic Acid 1 MG Tablet PO SCH (08:43)
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
[2018-07-11] MEDS: Famotidine 20 MG Tablet PO SCH (08:33)
[2018-07-11] MEDS: Docusate Sodium 100 MG Capsule PO SCH ×2 (08:33→13:29)
[2018-07-11] MEDS: Folic Acid 1 MG Tablet PO SCH (08:33)
[2018-07-11] MEDS: Lisinopril 20 MG Tablet PO SCH (08:33)
[2018-07-11] MEDS: Enoxaparin Inj 40 MG/0.4 ML Syringe SQ SCH (08:33)
[2018-07-11] MEDS: Multivitamin/Minerals Therapeutic Tablet PO SCH (08:33)
[2018-07-11] MEDS: Calcium/Vitamin D 250/125 MG Tablet PO SCH ×2 (08:33→13:29)
[2018-07-11 08:37] VITALS: RESP 18
--- NOTE | 2018-07-11 09:27 | P.DCO ---
Physical Therapy Order: Evaluate and treat, Improve ambulation and Strength and gait training Home Health Nursing Order: Medical education, Signs/symptoms of disease process, Wound care and dressing changes and Nursing assessment with vital signs Case Management Consult Case Management Consult-Home Health: Yes I have seen patient Edenilson Jones on 07/11/18. My clinical findings support the need for the requested home health care services because: Limited mobility due to disease progression, Deconditioned with increased weakness and Limited ability to care for self I certify that my clinical findings support that this patient is homebound because: Post-op weakness and Unsteady gait/balance
--- NOTE | 2018-07-11 10:55 | P.PNIM ---
Subjective Interval history: Follow-up for right fibula and tibia distal fracture, status post open reduction internal fixation of right distal fibula fracture, hypertension, obesity, alcohol abuse, renal insufficiency. Patient seen and examined laying in bed, stated keeping her his right leg elevated. Patient stated ready to go home now everything is arranged for home, with a ramp built, and insurance name fixed. Patient stated pain controlled with pain medication. Patient stated sleeping well and eating well. Patient stated had been moving around with walker, sitting more up in the chair yesterday. Has been working with physical therapy better. Patient denies any headache or dizziness, denies any chest pain shortness of breath, denies any abdominal pain, nausea, vomiting, diarrhea or constipation. Nurse reported no acute concerns overnight. construction worker reported discharge planning Physical Exam Vital signs: Vital Signs 07/10/18 12:00 07/10/18 16:00 07/10/18 20:45 Temperature 96.8 F L 97.7 F 98.3 F Pulse Rate 79 89 92 H Respiratory Rate 18 20 17 Blood Pressure 134/63 148/68 H 141/65 H Pulse Oximetry 98 96 97 07/11/18 00:44 07/11/18 08:00 07/11/18 08:35 Temperature 98.6 F 97.9 F Pulse Rate 75 76 Respiratory Rate 17 19 18 Blood Pressure 119/63 135/58 L Pulse Oximetry 95 96 07/11/18 10:11 Temperature Pulse Rate Respiratory Rate 18 Blood Pressure Pulse Oximetry Intake & Output 07/10/18 07/11/18 07/11/18 18:59 06:59 18:59 Intake Total 1100 / 1100 Output Total 925 / 925 Balance 175 / 175 Weight 167.3 kg Intake: Oral 1100 / 1100 Output: Urine 925 / 925 Other: Date of Last Bowel Movement 07/09/18 07/09/18 07/09/18 # Bowel Movements 0 Narrative: GENERAL: Well-developed, well-nourished, male in no apparent distress SKIN: Warm and dry. HEAD: Atraumatic. Normocephalic. EYES: Pupils equal and round. No scleral icterus. No injection or drainage. ENT: No nasal bleeding or discharge. Mucous membranes pink and moist. NECK: Trachea midline. No JVD. CARDIOVASCULAR: Regular rate and rhythm. RESPIRATORY: No accessory muscle use. Clear to auscultation. Breath sounds equal bilaterally. GASTROINTESTINAL: Abdomen obese soft, non-tender, nondistended. Hepatic and splenic margins not palpable. MUSCULOSKELETAL: Extremities without clubbing, cyanosis. Right lower extremity with splint in soft cast, sensations intact, moving all 5 digits. NEUROLOGICAL: Awake and alert. No obvious cranial nerve deficits. Motor grossly within normal limits. Five out of 5 muscle strength in the arms and legs except right lower extremity with limited range of motion. Normal speech. PSYCHIATRIC: Appropriate mood and affect; insight and judgment normal. Results Labs CBC & Chem 7: 07/07/18 05:40 07/08/18 05:11 Procedures Procedures: - Preoperative Diagnosis (1) Closed fracture of distal end of right fibula and tibia Date of procedure: 07/06/18 Procedure: Open reduction internal fixation right distal tibia fracture Anesthesia: GETA Surgeon: Duglas Maciel MD [employer] Operator: GEORGE Cummings PA-C The surgical procedure was assisted by my physician surgeon's assistant. My P.A. presence was necessary throughout this case for the manipulation and positioning of the surgical extremity. My P.A. was assisting me throughout the duration of this procedure. The skill set of a physician surgeon's assistant was medically necessary to complete this procedure. During the surgical case the behavioral health tech was working at the back table and the physician surgeon's assistant was directly assisting me. Operation and Findings: Implants used: [facility] Details of procedure: Edenilson was seen and evaluated preoperatively. He was found to have displaced right distal tibia and fibula fractures. Informed consent was obtained for open reduction and internal fixation of distal tibia fracture versus possible external fixation. Soft tissue was evaluated preoperatively and found to be suitable for open reduction internal fixation surgery. Patient was brought to the operating placed on operating room table. Patient was given IV sedation and general anesthesia. Timeout procedure was performed, and IV antibiotics were given prior to procedure. The operative leg was now prepped with alcohol followed by Hibiclens and draped usual sterile fashion. A 3 inch incision was now made over the medial aspect of the ankle. Saphenous vein was protected. A full thickness flap was now elevated. The distal medial tibia was now exposed. Attention was now turned towards reduction. The metaphyseal fragments were reduced first. Traction was applied and fracture fragments were manipulated. There were multiple metaphyseal fragments. These were manipulated in excellent reduction was achieved. Fracture tenaculums were used to reduce fractures. Multiple K wires were used to hold provisional fixation. Fluoroscopy confirmed excellent alignment of fractures. An [facility] medial distal tibial plate was selected. Plate was placed percutaneously along the medial aspect of the distal tibia. Plate was provisionally held to bone with K wires. 2.7 cortical screws and 3.5 cortical screws were used to compress plate to bone. Multiple screws were placed into the shaft. Multiple 2.7 locking screws were placed into the distal segment. All screws were predrilled and premeasured for appropriate lengths. Final fluoroscopy revealed well aligned fracture with well-placed hardware. The wound was now thoroughly irrigated. Subcutaneous tissues closed with 3-0 Vicryl and skin was closed with 3-0 nylon. Sterile dressings were applied with Xeroform 4 x 4's soft roll and a well-padded splint.. Needle and sponge counts were correct. Patient was transferred to recovery room in stable condition. Documented By: Duglas Maciel MD Assessment and Plan Plan This patient is a 62 years old male who is from [place] and lives in [place] during the winter season for a couple of months. Patient had an injury in his right lower extremity before coming down here, reported inversion of the area around the ankle. Patient admitted for a Closed fracture of distal end of right fibula and tibia. Closed fracture of distal end of right fibula and tibia Open reduction internal fixation right distal tibia fracture 07/06/18 -Pain control with bowel regimen -Orthopedics following: Appreciate recommendations -Continue PT/OT rehab per protocol Hypertension -Blood pressure control -resume home medications, lisinopril/hydrochlorothiazide Obesity -Counseled on weight loss management Chronic alcohol use -[facility] protocol as needed- -Multivitamin, thiamine, folic acid Renal insufficiency dehydration -likely secondary to lisinopril hydrochlorothiazide versus no fluids - IV fluids -Creatinine back to normal, 1.05 -Monitor BMP Constipation: -Add stool softener and PRN laxatives DVT prophylaxis : Lovenox GI prophylaxis :Pepcid Code Status: Full code Discussed Condition With: Patient, nurse and social welfare research worker Discharge Planning: Plan to discharge today with an equipment arranged, sample case porter to assist with discharge planning. Progress Note: Quality VTE Deep Vein Thrombosis/Pulmonary Embolism Present on Admission: No
[2018-07-11 13:07] VITALS: TEMP 97.7
[2018-07-11 18:34] VITALS: BP 107/66; PULSE 79; O2SAT 97
== END 2018-07-11 17:15 | disposition home or self-care (01) | DRG 493 ==
LOC: NEPE 17:53 → NEDA 21:07 → NEDH 07-06 01:07 → H7ONC 07-06 04:40 → N06 07-06 11:11
PROVIDERS: ADMIT Internal Medicine; ATTEND Internal Medicine
PROC: ORIFTIB (2018-07-06 16:56)
DX: E66.9 Obesity, unspecified; S82.401A Unspecified fracture of shaft of right fibula, initial encounter for closed fracture; Z79.82 Long term (current) use of aspirin; E86.0 Dehydration; [UNRECOGNIZED DIAGNOSIS CODE]; N28.9 Disorder of kidney and ureter, unspecified; S82.301A Unspecified fracture of lower end of right tibia, initial encounter for closed fracture; I11.9 Hypertensive heart disease without heart failure; X50.1XXA Overexertion from prolonged static or awkward postures, initial encounter; K59.00 Constipation, unspecified; Z96.659 Presence of unspecified artificial knee joint; Z68.42 Body mass index [BMI] 45.0-49.9, adult
CPT/HCPCS: 71010; 71045; 73590; 73600; 73700; 76000; 80048; 80053; 82948; 82962; 83036; 83735; 84100; 84439; 84443; 85025; 85610; 85730; 86850; 86900; 86901; 93005; 94150; 97110; 97116; 97162; 97167; 97530; 97535; 99285; J0131; J0690; J1170; J1650; J1885; J2250; J2405; J3010; J3370; J7030; J7050